=== PATIENT | female | born 1980 | race African-American/Black ===

== ENCOUNTER → 2019-01-22 16:33 | Outpatient (CLI) | payer MEDICAID, SELFPAY ==
[2019-01-22 17:19] LABS: Basophils % 0.5 % (0.1-2.0); Eosinophils % 0.5 % (0.1-12.0); Hematocrit 44.7 % (37.0-47.0); Lymphocytes # 1.3 K/mm3 (0.7-4.5); Lymphocytes % 30.9 % (10-50); Mean Corpuscular HGB Conc 33.6 g/dL (31.8-35.4); Mean Corpuscular Volume 83.2 fl (81-99); Mean Platelet Volume 10.4 fl (7.4-10.4); Monocytes # 0.3 K/mm3 (0.1-1.0); Monocytes % 7.1 % (1.7-9.3); Neutrophils # 2.6 K/mm3 (1.8-7.8); Neutrophils % 60.9 % (37.0-80.0); Platelet Count 200 K/mm3 (142-424); Red Blood Count 5.37 M/mm3 (4.20-5.40); Red Cell Distribution Width 14.1 % (11.5-17.5); White Blood Count 4.3 K/mm3 (4.8-10.8)
[2019-01-22 18:03] LABS: Alanine Aminotransferase 134 U/L (12-78); Albumin Level 3.7 gm/dL (3.4-5.0); Alkaline Phosphatase 156 U/L (46-116); Anion Gap 14.3 mEq/L (5-15); Aspartate Amino Transferase 224 U/L (15-37); Bilirubin,Total 0.4 mg/dL (0.2-1.0); Blood Urea Nitrogen 11 mg/dL (7-18); Calcium 8.6 mg/dL (8.5-10.1); Carbon Dioxide 28 mmol/L (21.0-32.0); Chloride 102 mmol/L (98-107); Chol/HDL Ratio 1.6 (1-3.5); Cholesterol 135 mg/dL (140-200); Creatinine,Serum 0.74 mg/dL (0.55-1.02); Estimated Glomerular Filt Rate 89 ml/min (>60); GFR (African American) 107 ML/MIN (>60); Globulin 3.7 gm/dl (1.3-3.2); Glucose 77 mg/dL (74-106); HDL Cholesterol 82 mg/dL (29-89); LDL Cholesterol 34 mg/dL (0-130); Potassium 4.3 mmoL/L (3.5-5.1); Sodium 140 mmol/L (136-145); T4 (Thyroxine) 10.8 ug/dl (4.7-13.3); Thyroid Stimulating Hormone 0.86 uIU/ml (0.358-3.740); Total Protein,Serum 7.4 gm/dL (6.4-8.2); Triglycerides 93 mg/dL (30-200); VLDL Cholesterol 19 mg/dL (0-40)
[2019-01-24 10:09] LABS: Hep A Ab, IgM Negative (Negative); Hepatitis B Core Antibody IgM Negative (Negative); Hepatitis B Surface Antigen Negative (Negative)
[2019-01-24 13:17] LABS: Hepatitis C Antibody >11.0 s/co ratio (0.0-0.9)
[2019-01-26 16:35] LABS: HCV Genotype Charge YES; Hepatitis C Genotype 1a (.)
== END ==
PROVIDERS: Visit Provider Physician Assistant
DX: B19.20 Unspecified viral hepatitis C without hepatic coma (principal)
CPT/HCPCS: 80053; 80061; 80074; 84436; 84443; 85025; 87522; 87902

== ENCOUNTER → 2019-01-23 14:04 | Outpatient (CLI) | payer MEDICAID, SELFPAY ==
--- NOTE | 2019-01-23 14:08 | XR_ITS ---
PROCEDURE: XR LUMBAR SPINE MIN 4V CLINICAL INDICATION: Low back pain Low back pain COMPARISON: No exams were available for comparison FINDINGS: There is minimal lower lumbar curvature convex left. No fracture or dislocation is evident. There are dense osteo sclerotic changes at the endplates at L4 and L5. There is straightening of the lumbar lordosis and there is mild endplate hypertrophic change with osteophytes from L2-L5. Degenerative disc disease is present at L4-5. IMPRESSION: 1. Sclerosis of the endplates at L4 and L5 with some irregularity of the endplate. This may represent a response to degenerative disc disease. 2. Straightening of lumbar lordosis which could be due to patient positioning or muscle spasm with degenerative changes Dictated by: Santosh Enciso MD 01/23/2019 14:23 Electronically signed by Santosh Enciso MD in [place] 01/23/2019 14:23
== END ==
PROVIDERS: PCP Physician Assistant; Visit Provider Physician Assistant
DX: M54.5 Low back pain (principal)
CPT/HCPCS: 72110